=== PATIENT | male | born 1990 | race Caucasian/White ===

== ENCOUNTER 2017-09-04 11:17 | Emergency (ER) | payer MEDICARE, OTHER ==
--- NOTE | 2017-09-04 12:27 | Emergency Department Record ---
History of Present Illness - General Chief Complaint: Fever Time Seen by Provider: 09/04/17 11:40 Source: Patient, RN notes reviewed Mode of Arrival: Wheelchair - History of Present Illness Initial Comments: cough and fever and this started 2 days ago and he has muscular dystophy and gets pneumonia easily. Complaint: Fever Onset/Timin -: Days(s) Maximum Temperature: 102.4 F Temperature Source: Oral - Related Data Previous Rx's Medication Instructions Recorded Azithromycin 250 mg PO DAILY #6 tablet 09/04/17 Cephalexin [Keflex] 500 mg PO QID #40 cap 09/04/17 Allergies Allergy/AdvReac Type Severity Reaction Status Date / Time cefaclor [From Ceclor] Allergy HIVES Verified 09/04/17 11:44 acetaminophen [From Vicodin] AdvReac VOMITING Verified 09/04/17 11:44 codeine AdvReac VOMITING Verified 09/04/17 11:44 hydrocodone bitartrate AdvReac VOMITING Verified 09/04/17 11:44 [From Vicodin] Travel Screening - Travel/Exposure Within Last 30 Days Have you traveled within the last 30 days?: No - Travel/Exposure Within Last Year Have you traveled outside the [place] in the last year?: No - Additonal Travel Details Have you been exposed to anyone with a communicable illness?: No - Travel Symptoms Symptom Screening: None Review of Systems Reviewed: No additional complaints except as noted below Constitutional: Reports: As per HPI, Fever. Denies: Chills, Malaise, Night sweats, Weakness, Weight change Eyes: Reports: As per HPI. Denies: Eye discharge, Eye pain, Photophobia, Vision change ENT: Reports: As per HPI. Denies: Congestion, Dental pain, Ear pain, Epistaxis , Hearing loss, Throat pain Respiratory: Reports: As per HPI, Cough. Denies: Dyspnea, Hemoptysis, Stridor, Wheezes Cardiovascular: Reports: As per HPI. Denies: Arrhythmia, Chest pain, Dyspnea on exertion, Edema, Murmurs, Orthopnea, Palpitations, Paroxysmal nocturnal dyspnea, Rheumatic Fever, Syncope Endocrine: Reports: As per HPI. Denies: Fatigue, Heat or cold intolerance, Polydipsia, Polyuria Gastrointestinal: Reports: As per HPI. Denies: Abdominal pain, Constipation, Diarrhea, Hematemesis, Hematochezia, Melena, Nausea, Vomiting Genitourinary: Reports: As per HPI. Denies: Dysuria, Frequency, Hematuria, Incontinence, Retention, Testicular pain, Testicular mass, Urgency Musculoskeletal: Reports: As per HPI. Denies: Arthralgia, Back pain, Gout, Joint swelling, Myalgia, Neck pain Skin: Reports: As per HPI. Denies: Bruising, Change in color, Change in hair/ nails, Lesions, Pruritus, Rash Neurological: Reports: As per HPI. Denies: Abnormal gait, Confusion, Headache, Numbness, Paresthesias, Seizure, Tingling, Tremors, Vertigo, Weakness Psychiatric: Reports: As per HPI. Denies: Anxiety, Auditory hallucinations, Depression, Homicidal thoughts, Suicidal thoughts, Visual hallucinations Hematological/Lymphatic: Reports: As per HPI. 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 - CARDIOVASCULAR Hx Cardio Disorders: Yes Hx Hypertension: Yes - NEURO Hx Neuro Disorders: No - GI Hx GI Disorders: No - Hx Genitourinary Disorders: Yes Hx Kidney Stones: Yes (hx) - ENDOCRINE Hx Endocrine Disorders: No - MUSCULOSKELETAL Hx Musculoskeletal Disorders: Yes Hx Musculoskeletal Disease: Yes (Muscular Dystrophy) - PSYCH Hx Psych Problems: No - HEMATOLOGY/ONCOLOGY Hx Hematology/Oncology Disorders: No Family Medical History Any Significant Family History?: Yes Hx Cancer: Grandparents Hx Diabetes: Father, Grandparents Hx HTN: Father, Grandparents Physical Exam - General General Appearance: Alert, Oriented x3, Cooperative, Mild distress - Head Head exam: Normal inspection - Eye Eye exam: Normal appearance, PERRL Pupils: Normal accommodation - ENT ENT exam: Normal exam, Mucous membranes moist, Normal external ear exam, Normal orophraynx, TM's normal bilaterally Ear exam: Normal external inspection. negative: External canal tenderness Nasal Exam: Normal inspection. negative: Discharge, Sinus tenderness Mouth exam: Normal external inspection, Tongue normal Teeth exam: Normal inspection. negative: Dental caries Throat exam: Normal inspection. negative: Tonsillar erythema, Tonsillar exudate - Neck Neck exam: Normal inspection, Full ROM. negative: Tenderness - Respiratory Respiratory exam: Decreased breath sounds. negative: Respiratory distress - Cardiovascular Cardiovascular Exam: Regular rate, Normal rhythm, Normal heart sounds - GI/Abdominal GI/Abdominal exam: Soft, Normal bowel sounds. negative: Tenderness - Rectal Rectal exam: Deferred - exam: Deferred - Extremities Extremities exam: Normal inspection, Full ROM, Normal capillary refill. negative: Tenderness - Back Back exam: Reports: Normal inspection, Full ROM. Denies: Muscle spasm, Rash noted, Tenderness - Neurological Neurological exam: Alert, Normal gait, Oriented X3, Reflexes normal - Psychiatric Psychiatric exam: Normal affect, Normal mood - Skin Skin exam: Dry, Intact, Normal color, Warm Course Vital Signs 09/04/17 11:35 Temperature 102.1 F H Pulse Rate 132 H Respiratory 22 Rate Blood Pressure 147/87 Pulse Ox 92 L Medical Decision Making - Data Complexity MDM Data: Labs Ordered and/or Reviewed, X-Ray Ordered and/or Reviewed (neg chest xray) - Lab Data Result diagrams: 09/04/17 11:50 09/04/17 11:50 Disposition Clinical Impression: Bronchitis Fever Qualifiers: Fever type: unspecified Qualified Code(s): R50.9 - Fever, unspecified Disposition: Home, Self-Care Condition: (2) Stable Instructions: Fever in Adults (ED), Acute Bronchitis (ED) Additional Instructions: follow up with his primary DrTung in 3 days Prescriptions: Azithromycin 250 mg PO DAILY #6 tablet Cephalexin [Keflex] 500 mg PO QID #40 cap Forms: Patient Portal Access Time of Disposition: 15:51 Quality - Quality Measures Quality Measures: N/A - Blood Pressure Screening Does Patient Have Any of the Following: No Blood Pressure Classification: Pre-Hypertensive BP Reading Systolic Measurement: 147 Diastolic Measurement: 87 Screening for High Blood Pressure: Patient Exclusion, Hx of HTN [G9744]
[2017-09-04] MEDS ORDERED: AZITHROMYCIN 500 MG in 0.9 % SODIUM CHLORIDE 250ML 250 ML IVPB ONE (12:29)
[2017-09-04] MEDS ORDERED: CEFTRIAXONE SODIUM 1 GM in 0.9 % SODIUM CHLORIDE 100ML 100 ML IVPB ONE (12:29)
[2017-09-04] MEDS ORDERED: 0.9 % SODIUM CHLORIDE 1,000 ML BAG IV ONE (12:31)
[2017-09-04] MEDS ORDERED: ACETAMINOPHEN 500 MG TABLET PO ONE (12:39)
[2017-09-04 13:09] LABS: BASO % 0.2 % (0-6); BLOOD UREA NITROGEN 9 mg/dL (6-20); CREATININE 0.5 mg/dL (0.7-1.2); EOS % 0.4 % (0-6); EST GLOMERULAR FILTRATION RATE > 60 mL/min; GLUCOSE,RANDOM 118 mg/dL (74-109); GRAN % 78.5 % (47-80); HEMATOCRIT 43.8 % (42.0-52.0); HEMOGLOBIN 15.3 gm/dl (14.0-18.0); LYMPH % 10.8 % (16-45); MEAN CELL VOLUME 86.9 fl (81-97); MEAN CORPUSCULAR HEMOGLOBIN 30.3 pg (27-33); MEAN CORPUSCULAR HGB CONC 34.9 g/dl (32-36); MEAN PLATELET VOLUME 10.4 fl (7.4-10.4); MONO % 10.1 % (0-9); PLATELET COUNT 276 K/uL (130-400); RED BLOOD COUNT 5.04 M/uL (4.40-5.70); WHITE BLOOD COUNT W/O DIFF 11.4 K/uL (4.2-12.2)
[2017-09-04 14:55] LABS: URINE APPEARANCE SL CLOUDY; URINE BILIRUBIN NEGATIVE (NEGATIVE); URINE BLOOD TRACE-I (NEGATIVE); URINE COLOR YELLOW; URINE GLUCOSE (UA) NEGATIVE (NEGATIVE); URINE KETONE NEGATIVE (NEGATIVE); URINE LEUKOCYTE ESTERASE NEGATIVE (NEGATIVE); URINE NITRITE NEGATIVE (NEGATIVE); URINE PROTEIN NEGATIVE (NEGATIVE); URINE UROBILINOGEN 0.2 E.U./dL (0.20 - 1.00)
[2017-09-04 15:04] LABS: URINE BACTERIA NONE SEEN; URINE EPITHELIAL CELLS 0 - 2 (FEW); URINE RBC NONE SEEN (NONE SEEN); URINE WBC NONE SEEN (0-2/hpf)
--- NOTE | 2017-09-05 09:11 | RADIOLOGY REPORT ---
EXAM: CHEST, TWO VIEWS HISTORY: CHEST PAIN. TECHNIQUE: Frontal and lateral views fo the chest were obtained. Comparison: None. FINDINGS: Severe levoconvex scoliosis with fixation rods and screws of the thoracic spine. The heart size is normal. The lungs are clear. No pneumothorax. IMPRESSION: NO ACUTE CARDIOPULMONARY PROCESS. JOB NUMBER: [id number] MTDD
== END 2017-09-04 16:13 | disposition home or self-care (01) ==
LOC: ER 11:17
DX: J20.9 Acute bronchitis, unspecified (principal); R50.81 Fever presenting with conditions classified elsewhere; G71.0 Muscular dystrophy; R07.9 Chest pain, unspecified
CPT/HCPCS: 71020; 80048; 81001; 85025; 96361; 96374; 96375; 99284; J0456; J7050

== ENCOUNTER 2019-02-09 08:12 | Emergency (ER) | payer BC, MEDICARE ==
--- NOTE | 2019-02-09 08:23 | Emergency Department Record ---
History of Present Illness - General Chief Complaint: Ankle/Foot Injury Stated Complaint: ANKLE INJURY Time Seen by Provider: 02/09/19 08:18 Source: Patient Mode of Arrival: Ambulatory Limitations: No limitations - History of Present Illness Initial Comments: 28 yo male presents with right foot and ankle pain since yesterday. He has muscular dystrophy. He tripped going up stairs. He has persistent pain in the foot and ankle on the right. He wears braces on the RLE chronically. He has a walker and a wheelchair at home. No other injury from yesterday. He declines the need for pain medication at this time. Complaint: Ankle injury, Foot injury -: Days(s) (1) Injury: Ankle: Right, Foot: Right Type of Injury: Other (Fall) Place: Home Severity: Moderate Improves With: Immobilization Worsens With: Movement, Palpation, Weight bearing Context: Walking Other Symptoms: Other Associated Symptoms: Other Treatments Prior to Arrival: Other - Related Data Previous Rx's Medication Instructions Recorded Azithromycin 250 mg PO DAILY #6 tablet 09/04/17 Hydrocodone/Acetaminophen [[place] 1 each PO Q6H PRN #12 tablet 02/09/19 5-325 Tablet] Allergies Allergy/AdvReac Type Severity Reaction Status Date / Time cefaclor [From Ceclor] Allergy HIVES Verified 02/09/19 08:21 codeine AdvReac VOMITING Verified 02/09/19 08:21 hydrocodone bitartrate AdvReac VOMITING Verified 02/09/19 08:21 [From Vicodin] Review of Systems Constitutional: Denies: Chills, Fever Eyes: Denies: Eye discharge, Eye pain ENT: Denies: Congestion, Ear pain, Throat pain Respiratory: Denies: Cough, Dyspnea Cardiovascular: Denies: Chest pain, Syncope Endocrine: Denies: Fatigue Gastrointestinal: Denies: Abdominal pain, Diarrhea, Nausea, Vomiting Genitourinary: Denies: Dysuria, Frequency, Hematuria Musculoskeletal: Reports: As per HPI, Arthralgia Skin: Denies: Bruising, Change in color, Rash Neurological: Denies: Confusion, Headache Psychiatric: Denies: Anxiety Hematological/Lymphatic: Denies: Easy bleeding, Easy bruising Past Medical History - SOCIAL HISTORY Smoking Status: Never smoker Drug Use: None - RESPIRATORY Hx Respiratory Disorders: Yes Hx Pneumonia: Yes Comment:: 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 - CARDIOVASCULAR Hx Cardio Disorders: Yes Hx Hypertension: Yes - NEURO Hx Neuro Disorders: No - GI Hx GI Disorders: No - Hx Genitourinary Disorders: Yes Hx Kidney Stones: Yes (hx) - ENDOCRINE Hx Endocrine Disorders: No - MUSCULOSKELETAL Hx Musculoskeletal Disorders: Yes Hx Musculoskeletal Disease: Yes (Muscular Dystrophy) - PSYCH Hx Psych Problems: No - HEMATOLOGY/ONCOLOGY Hx Hematology/Oncology Disorders: No Family Medical History Hx Cancer: Grandparents Hx Diabetes: Father, Grandparents Hx HTN: Father, Grandparents Physical Exam - General General Appearance: Alert, Oriented x3, Cooperative, No acute distress Limitations: No limitations - Head Head exam: Atraumatic, Normal inspection - Eye Eye exam: Normal appearance. negative: Conjunctival injection - ENT ENT exam: Normal exam Ear exam: Normal external inspection Nasal Exam: Normal inspection Mouth exam: Normal external inspection - Neck Neck exam: Normal inspection - Cardiovascular Peripheral Pulses: 2+: Dorsalis Pedis (R) - Extremities Extremities exam: Normal inspection, Full ROM, Normal capillary refill, Tenderness. negative: Calf tenderness, Pedal edema Image of Full Body: 1 - tender midline distal leg, normal inspection, tender proximal midline of the foot - Back Back exam: Denies: CVA tenderness (R), CVA tenderness (L) - Neurological Neurological exam: Alert, Oriented X3 - Psychiatric Psychiatric exam: Normal affect, Normal mood - Skin Skin exam: Dry, Intact, Normal color, Warm Course - Reevaluation(s) Reevaluation #1: No acute changes on the vitals 02/09/19 08:29 CT of the RLE was reviewed on the EMR from 11/08/15. Atrophy noted. No fracture. 02/09/19 08:29 02/09/19 09:05 The XR's of the foot and ankle were reviewed. No acute fracture or dislocation noted. The patient has a supportive brace already. He has walkers and wheelchair at home as well 02/09/19 09:40 We discussed the results. I explained if pain continues he will need follow up in the next week to consider other injured structures as well Disposition Disposition: Discharge Clinical Impression: Ankle sprain Disposition: Home, Self-Care Condition: (1) Good Instructions: Ankle Sprain (ED) Additional Instructions: Call your doctor for the next available follow up appointment if the pain does not resolve in the next 7-10 days Use your wheelchair until the pain is resolved Return to the ER for a recheck if worse, any new concerns or questions Take the prescriptions provided as directed Review this ER visit and the tests performed with your family doctor Prescriptions: Hydrocodone/Acetaminophen [[place] 5-325 Tablet] 1 each PO Q6H PRN #12 tablet PRN Reason: Pain - Mild (1-4) Forms: Patient Portal Access Time of Disposition: 09:22 Quality - Quality Measures Quality Measures: N/A - Blood Pressure Screening Does Patient Have Any of the Following: No Blood Pressure Classification: Hypertensive Reading Systolic Measurement: 138 Diastolic Measurement: 93 Screening for High Blood Pressure: < Pre-Hypertensive BP, F/U Documented > [ G8950] Pre-Hypertensive Follow-up Interventions: Referral to alternative/primary care provider.
--- NOTE | 2019-02-12 09:26 | RADIOLOGY REPORT ---
EXAM: RIGHT ANKLE HISTORY: FALL, LATERAL ANKLE PAIN AND SWELLING. TECHNIQUE: Three views of the right ankle were obtained. Comparison: CT of the right ankle 11/08/15. FINDINGS: Diffuse ankle soft tissue swelling. No acute fracture visualized. No evidence of dislocation. IMPRESSION: DIFFUSE ANKLE SOFT TISSUE SWELLING WITHOUT UNDERLYING ACUTE OSSEOUS ABNORMALITY. JOB NUMBER: [id number] MTDD
--- NOTE | 2019-02-12 09:36 | RADIOLOGY REPORT ---
EXAM: RIGHT FOOT HISTORY: FALL, FOOT PAIN. TECHNIQUE: Three views of the right foot were obtained. Comparison: Right foot radiographs 01/09/12. FINDINGS: Mild forefoot soft tissue swelling. No acute fracture visualized. Tarsal metatarsal alignment appears maintained. IMPRESSION: 1. FOREFOOT SOFT TISSUE SWELLING. 2. NO ACUTE OSSEOUS FINDINGS. JOB NUMBER: [id number] MTDD
== END 2019-02-09 09:35 | disposition home or self-care (01) ==
LOC: ER 08:12
DX: S93.401A Sprain of unspecified ligament of right ankle, initial encounter (principal); M79.671 Pain in right foot; W01.0XXA Fall on same level from slipping, tripping and stumbling without subsequent striking against object, initial encounter; Y92.009 Unspecified place in unspecified non-institutional (private) residence as the place of occurrence of the external cause; G71.00 Muscular dystrophy, unspecified
CPT/HCPCS: 99283; 99284